=== PATIENT | female | born 1995 | race Caucasian/White ===

== ENCOUNTER → 2021-02-22 09:20 | Outpatient (BNVA) | payer OTHER, SELFPAY | PROVIDERS: Family Provider Family Medicine; PCP Family Medicine; Visit Provider Obstetrics & Gynecology | DX: Z12.4 Encounter for screening for malignant neoplasm of cervix (principal) | CPT/HCPCS: 88175 ==

== ENCOUNTER 2023-11-21 13:13 | Outpatient (CLI) | payer OTHER, SELFPAY ==
--- NOTE | 2023-11-21 13:16 | US_ITS ---
WS: [id number] ULTRASOUND BREAST LEFT TECHNIQUE: Ultrasound left breast focused area of concern. CLINICAL INFORMATION: LEFT breast redness COMPARISON: None. FINDINGS: Ultrasound entire LEFT breast. Dense underlying parenchymal tissue. No cystic or solid lesions. No hughes spicious lesions to target for biopsy. No evidence of abscess or drainable fluid collection. Findings are benign. IMPRESSION: BI-RADS 2 benign Recommend annual screening mammography age 40
== END 2023-11-21 13:14 | disposition home or self-care (01) ==
LOC: RAD 13:13
PROVIDERS: Family Provider Family Medicine; PCP Family Medicine; Visit Provider Clinical Nurse Specialist Adult Health
DX: N63.42 Unspecified lump in left breast, subareolar (principal); R59.0 Localized enlarged lymph nodes; N64.59 Other signs and symptoms in breast
CPT/HCPCS: 76641